=== PATIENT | female | born 1965 | race Caucasian/White ===

== ENCOUNTER → 2016-12-07 | Outpatient (CLI) | payer OTHER | LOC: FIMAGING 10:30 | DX: Z12.31 Encounter for screening mammogram for malignant neoplasm of breast (principal); Z80.3 Family history of malignant neoplasm of breast | CPT/HCPCS: G0202 ==

== ENCOUNTER → 2017-12-15 | Outpatient (CLI) | payer OTHER | LOC: FIMAGING 10:59 | PROVIDERS: ATTEND Obstetrics & Gynecology Gynecology | DX: Z12.31 Encounter for screening mammogram for malignant neoplasm of breast (principal) ==

== ENCOUNTER → 2019-01-10 | Outpatient (CLI) | payer OTHER | LOC: FIMAGING 12:05 ==